=== PATIENT | female | born 1990 | race Two or more races ===

== ENCOUNTER 2024-02-04 20:30 | Emergency (ER) | payer MEDICAID, SELFPAY ==
[2024-02-04 20:34] VITALS: BMI 29.3
--- NOTE | 2024-02-04 20:46 | PC.NURSE ---
CALLED POISON CONTROL SPOKE TO PRATEEK AND RECOMMENDED TO GIVE SUPPORT CARE IF NEEDED EXAMPLE WILL BE BREATHING TREATMENT OR HUMIDIFIED AIR FOR COMFORT PT WILL BE FINE.
--- NOTE | 2024-02-04 21:27 | PC.NURSE ---
pt did not answer when name was called and was not found outside
--- NOTE | 2024-02-04 22:34 | PC.NURSE ---
Patient called in main ED lobby and outside, no answer.
--- NOTE | 2024-02-04 22:56 | PC.NURSE ---
No answer in main ED lobby.
== END 2024-02-04 22:56 | disposition left against medical advice (07) ==
LOC: SERX 22:58
PROVIDERS: Emergency Provider Emergency Medicine
DX: Z53.21 Procedure and treatment not carried out due to patient leaving prior to being seen by health care provider (principal)

== ENCOUNTER 2024-09-15 12:24 | Emergency (ER) | payer MEDICAID, SELFPAY ==
[2024-09-15 12:26] VITALS: BMI 29.0
[2024-09-15 13:16] VITALS: BP 142/93; PULSE 90; RESP 18; TEMP 36.7; O2SAT 100
--- NOTE | 2024-09-15 13:18 | EDNOTE_ITS ---
ED Wound/Laceration-RME/HPI General Chief Complaint: Wound/Laceration Stated Complaint: LAC TO TOP OF HEAD; HIT HAD ON METAL CABINET Time Seen by Provider: 09/15/24 13:26 Arrival date/time: 09/15/24 12:24 This is a 34-year-old female that comes in with complaints of laceration to the top of her head. No loss of consciousness. Patient was by a trailer and lifted her head up and hit herself on a bar. Patient has an approximately 2 cm laceration to the top of her head. No loss of consciousness. Related Data Previous Rx's ?Medication ?Instructions ?Recorded ibuprofen 600 mg tablet 600 mg PO Q8H PRN pain #30 t abs 06/30/21 ibuprofen 800 mg tablet 800 mg PO Q6H PRN pain #20 t abs 09/15/24 Allergies Allergy/AdvReac Type Severity Reaction Status Date / Time shrimp Allergy Severe Anaphylaxis Verified 09/15/24 12:28 Course Orders Category Date Time Status Acetaminophen Tab [Tylenol ES Tab] Med 09/15/24 15:54 Discontinued 1,000 mg PO X1 ONE Ibuprofen Tab [Motrin Tab] Med 09/15/24 15:54 Discontinued 800 mg PO X1 ONE TET,DIP/PERT AC (Adult)-Tdap [Boostrix Adult (Tdap) Med 09/15/24 16:11 Once Vacc] 0.5 ml IMI .ONCE ONE Vital Signs Vital signs: Vital Signs Temperature 98.1 F 09/15/24 13:16 Pulse Rate 90 09/15/24 13:16 Respiratory Rate 18 09/15/24 13:16 Blood Pressure 142/93 H 09/15/24 13:16 Pulse Oximetry (%) 100 09/15/24 13:16 Oxygen Delivery Method Room Air 09/15/24 13:16 Wound / Laceration MDM Narrative MDM Narrative:: 2 malik placed patient tolerated well. Patient told to have malik removed in 7 days. Medications / Prescriptions Medication administrations:: Medication Administration History Discontinued Medications Acetaminophen (Acetaminophen 500 Mg Tablet) 1,000 mg PO X1 ONE Stop: 09/15/24 15:55 Last Admin: 09/15/24 16:01 Dose: 1,000 mg Documented By: ROSARIO Ibuprofen (Ibuprofen Tab 400 Mg Tablet) 800 mg PO X1 ONE Stop: 09/15/24 15:55 Last Admin: 09/15/24 16:01 Dose: 800 mg Documented By: ROSARIO Discharge Plan Plan Patient Disposition: HOME (Self Care) Patient condition on transfer: Stable Prescriptions/Referrals Prescriptions/Med Rec: New ibuprofen 800 mg tablet 800 mg PO Q6H PRN (Reason: pain) Qty: 20 0RF No Action ibuprofen 600 mg tablet 600 mg PO Q8H PRN (Reason: pain) Qty: 30 0RF Referrals: Marquis Burnette MD [Primary Care Provider] - In 1 week Problem List Clinical Impression: Laceration Patient/Caregiver Discharge Instructions Discharge Activity: activity as tolerated Education Materials: ED Laceration Scalp Sutures or ... Additional Instructions: May have malik removed in 7 days. Come back to the emergency room if symptoms change or worsen. Print Language: Syriac Stand Alone Forms: Megha Award Info., Patient Portal Info Letter PA/CASEWORK SUPERVISOR Supervising Physician PA/CASEWORK SUPERVISOR Supervising Physician: sal
[2024-09-15] MEDS: IBUPROFEN TAB 400 MG TABLET 800 MG PO (16:01)
[2024-09-15] MEDS: ACETAMINOPHEN 500 MG TABLET 1000 MG PO (16:01)
[2024-09-15] MEDS: DIPHTH,PERTUSS(ACELL),TET VAC 0.5 ML SYR- ADULT IMi (16:15)
== END 2024-09-15 16:19 | disposition home or self-care (01) ==
PROVIDERS: Emergency Provider Emergency Medicine; PCP Family Medicine
DX: S01.91XA Laceration without foreign body of unspecified part of head, initial encounter (principal); Z23 Encounter for immunization; W22.8XXA Striking against or struck by other objects, initial encounter
CPT/HCPCS: 12001; 90471; 90715; 99283; A9270

== ENCOUNTER 2024-09-18 21:25 | Emergency (ER) | payer MEDICAID, SELFPAY ==
[2024-09-18 21:25] VITALS: BMI 29.3
[2024-09-18 21:36] VITALS: BP 139/92; PULSE 83; RESP 18; TEMP 36.8; O2SAT 99
--- NOTE | 2024-09-18 21:37 | EDNOTE_ITS ---
ED Abdominal Pain RME/HPI General Chief Complaint: Abdominal Pain Stated complaint: RIGHT LOWER ABDOMINAL PAIN Time seen by provider: 09/18/24 21:36 Arrival date/time: 09/18/24 21:25 RME / HPI RME / HPI narrative: This section includes all my notes and documentations, including HPI, PE, and ED course. Ben Fierro MD HPI: 34yo female with a history of DM, asthma presents to the ED for complaints of right flank pain radiating into RLQ for several days. She reports associated dysuria. She denies any fever, chills, N/V or any other associated symptoms. No other complaints reported. ROS: All negative except as documented in HPI. Physical Exam: General: Alert and oriented. In obvious pain. Eyes: Conjunctivae and lids clear. ENT: No nasal congestion. Neck: Supple. Heart: RRR. Lungs: No respiratory distress. Good air movement. No rhonchi, wheezing, rales. Abdomen: Soft with equivocal RLQ tenderness. Normal bowel sounds. No distension. No rebound or guarding. Back: Right CVA tenderness. Skin: Warm and dry. Neuro: Alert and oriented X 3. I reviewed all diagnostic test results. My review of the abdominal CT is pyelonephritis. Blood tests unremarkable. UA showed positive leukocyte Estrace, 8 RBC, 589 WBC, and bacteria. At this point, diagnoses include kidney infection. Treatment here included NS, Rocephin, Toradol, Morphine, and Zofran. Significant improvement noted. Recommend outpatient treatment. Based on my best medical judgment, made decision no further evaluation or treatment indicated at this time. Patient understands and agrees to the discharge instructions customized and printed, see below. Discharge instructions from Dr. Fierro: 1. After evaluation, you have right kidney infection. 2. Take cefdinir to kill the germs causing the infection. Increase oral fluid to flush it out. Maintain clear urine. If dark or yellow, increase oral fluid. 3. Zofran for nausea/vomiting. Tylenol with codeine for severe pain. 4. See a private doctor on 09/23/2024 for recheck. Ask to review all test results and official radiology reports, to make sure you receive all necessary follow-ups and monitoring. Ask to check the final urine culture results from today to make sure cefdinir doesn't need to be changed due to resistance. 5. Seek immediate medical care with worsening, fever, or with any concerns. Instrucciones de scooter del Dr. Fierro: 1. Despu?s de la evaluaci?n, presenta infecci?n en el ri??n derecho. 2. [place] cefdinir para eliminar los g?rmenes que causan la infecci?n. Aumente la cantidad de l?quidos orales para eliminarlos. Mantenga la orina ally. Si es oscura o amarilla, aumente la cantidad de l?quidos orales. 3. Zofran para n?useas y v?mitos. Tylenol con code?na para dolor intenso. 4. Consulte con un m?dico particular el 23/09/2024 para fanny nueva revisi?n. Solicite la revisi?n de todos los resultados de las pruebas y los informes radiol?gicos oficiales para asegurarse de recibir todos los controles y monitoreos necesarios. Solicite la revisi?n de los resultados finales del urocultivo de hoy para asegurarse de que no sea necesario cambiar la dosis de cefdinir debido a la resistencia. 5. Busque atenci?n m?dica inmediata si presenta empeoramiento, fiebre o cualquier inquietud. Ben Fierro MD Related Data Previous Rx's ?Medication ?Instructions ?Recorded ibuprofen 600 mg tablet 600 mg PO Q8H PRN pain #30 t abs 06/30/21 ibuprofen 800 mg tablet 800 mg PO Q6H PRN pain #20 t abs 09/15/24 acetaminophen 300 mg-codeine 30 mg 2 tab PO Q8H PRN pa in #20 tabs 09/19/24 tablet cefdinir 300 mg capsule 300 mg PO BID #14 caps 09/19 ondansetron 4 mg disintegrating 4 mg PO TID PRN nausea and 09/19/24 tablet vomiting 30 days #10 tabs Allergies Allergy/AdvReac Type Severity Reaction Status Date / Time shrimp Allergy Severe Anaphylaxis Verified 09/15/24 12:28 Review of Systems Review of Systems Systems Reviewed: All systems reviewed, normal except as documented Past Medical History Past Medical History NEUROLOGIC: Negative Neurological Disorders or Seizures CARDIAC: Negative Cardiac Disorders or Congestive Heart Failure RESPIRATORY: Positive Asthma; Negative Chronic Obstructive Pulmonary Disease (COPD) GASTROINTESTINAL: Negative Gastrointestinal Disorders or Hepatitis GENITOURINARY: Negative Genitourinary Disorders or Renal Disease REPRODUCTIVE: Negative Pelvic Inflammatory Disease MUSCULOSKELETAL: Negative Musculoskeletal Disorders ENDOCRINE: Positive Endocrine Disorders and Diabetes Mellitus Type 2; Negative Diabetes Mellitus Type 1 HEMATOLOGIC: Negative Blood Disorders OTHER HISTORY: Positive Hospitalization (Previous ); Negative Autoimmune Disease, Down Syndrome, Developmental Delay, Shingles, Falls, Blood Transfusions, Blood Transfusion Reaction, Anesthesia Reactions, Organ Transplant, Chemotherapy, Radiation Therapy, Hyperbaric Therapy, MRSA, VRSA, Vancomycin-Resistant Enterococci, Human Immunodeficiency Virus (HIV), Chicken Pox, Measles, Mumps, Rubella ([place] Measles), Pertussis, Clostridium Difficile or Cancer Family History FAMILY HISTORY: Negative Family Neurologic Problems, Family Psychiatric Problems, Family Respiratory Disorders, Family Cardiac Disorders, Family Gastrointestinal Problems, Family Cancer, Family Surgery or Family Anesthesia Reaction Surgical History SURGICAL: Negative Cardiac Surgery, Endocrine Surgery, Ear Surgery, Eye Surgery, Nose Surgery, Oral Surgery, Abdominal Surgery, Nephrectomy, Transurethral Resection, Joint Replacement, Neurologic Surgery, Brain Shunt, Mastectomy, Lumpectomy, Hysterectomy, Tubal Ligation, Section, Vasectomy or Organ Transplant Social History SMOKING STATUS: Never smoker SECOND HAND EXPOSURE: No SUBSTANCE USE: does not use ED Exam Narrative Physical exam: As noted in HPI. Course Quality Measures none Orders Category Date Time Status Saline [Insert IV] NOW Care 09/18/24 21:37 Completed Straight [In and Out Catheter] X1 Care 09/18/24 21:[address] abdomen pelvis wo con Stat Exams 09/18/24 21:38 Taken CBC Auto Diff Post-Transfusion Stat Lab 09/18/24 22:03 Completed CMP [Comprehensive Metabolic Panel] Stat Lab 09/18/24 22:03 Completed HCG Qualitative,Urine Stat Lab 09/18/24 23:11 Completed HCG,Qualitative Serum Stat Lab 09/18/24 22:03 Completed Magnesium Stat Lab 09/18/24 22:03 Completed UA, C/S IF [Urinalysis, C/S if Indicated] Stat Lab 09/18/24 23:11 Completed Urine Culture Stat Lab 09/18/24 23:11 Received Ketorolac Inj [Toradol Inj] Med 09/18/24 21:37 Discontinued 30 mg IVP X1 ONE Morphine Inj Med 09/18/24 21:37 Discontinued 4 mg IVP X1 ONE Ondansetron Inj [Zofran Inj] Med 09/18/24 21:37 Discontinued 4 mg IV X1 ONE Sodium Chloride 0.9% 1000 ml [Ns] 1,000 ml Med 09/18/24 21:37 Discontinued IV 999 mls/hr cefTRIAXone [Rocephin] 1,000 mg Med 09/19/24 00:43 Discontinued SODIUM CHLORIDE 0.9% ([place]) [Ns 0.9% (P)] 50 ml IV X1 Vital Signs Vital signs: Vital Signs Temperature 98.3 F 09/18/24 21:36 Pulse Rate 83 09/18/24 21:36 Respiratory Rate 18 09/18/24 21:36 Blood Pressure 139/92 H 09/18/24 21:36 Pulse Oximetry (%) 99 09/18/24 21:36 Oxygen Delivery Method Room Air 09/18/24 21:36 Abdominal Pain MDM MDM Narrative MDM Narrative:: Scribe Attestation: 09/18/24 - Rita Monk am scribing for and in the presence of Dr. Fierro. Patient data External records reviewed:: [facility] previous records (Per chart review, patient was seen here on 01/25/21 for abdominal pain.) Clinical information provided by:: patient Social determinants that could affect healthcare access:: none Patient has the following chronic illnesses:: DM, asthma How is presenting disease/condition affected by chronic disease/condition?: uneffected by Evaluation data The following diagnostics were reviewed and interpreted by me:: lab results and radiology exam(s) Lab and/or radiology exams considered but not ordered:: none Interpretation Summary: Kidney infection Medications / Prescriptions Medications or Prescriptions considered but not ordered:: none Medication administrations:: Medication Administration History Discontinued Medications Sodium Chloride (Ns) 1,000 mls @ 999 mls/hr IV .Q1H1M ONE Stop: 09/18/24 22:37 Last Infusion: 09/18/24 23:30 Dose: Infused Documented By: Admin: 09/18/24 22:07 Dose: 999 mls/hr Documented By: OLGA Ceftriaxone Sodium 1,000 mg/ (Sodium Chloride) 50 mls @ 100 mls/hr IV X1 ONE Stop: 09/19/24 01:12 Last Infusion: 09/19/24 02:28 Dose: Infused Documented By: Admin: 09/19/24 01:02 Dose: 100 mls/hr Documented By: SF Ketorolac Tromethamine (Ketorolac Inj 30 Mg/Ml Vial) 30 mg IVP X1 ONE Stop: 09/18/24 21:38 Last Admin: 09/18/24 22:05 Dose: 30 mg Documented By: SF Morphine Sulfate (Morphine Sulf Inj 10 Mg/Ml Vial) 4 mg IVP X1 ONE Stop: 09/18/24 21:38 Last Admin: 09/18/24 22:06 Dose: 4 mg Documented By: SF Ondansetron HCl (Ondansetron Inj 2 Mg/Ml Inj 2 Ml) 4 mg IV X1 ONE; Protocol Stop: 09/18/24 21:38 Last Admin: 09/18/24 22:05 Dose: 4 mg Documented By: OLGA NS, Rocephin, Toradol, Morphine, Zofran Consultations Consultation(s) initiated? (list below): No Diagnosis Differential diagnosis abdominal pain: acute appendicitis, calculus of kidney, constipation, diverticulitis, endometriosis, gastroenteritis, pancreatitis, small bowel obstruction and other (UTI, pyelonephritis, musculoskeletal pain) Most likely diagnosis given after review of the tests above:: Kidney infection Admission Indicated Admission indicated?: not indicated Explain why admission is indicated or not indicated:: With significant improvement, there was no indication for admission. Admission Request Was there a request for admission?: No Disposition Plan Disposition Plan: Discharge Discharge Attestation Discharge Attestation: The patient and all family members were given an opportunity to ask questions and understood the discharge instructions. Discharge instructions specifically effects, indications for sooner follow up or return to the emergency department, and the expected course of current diagnosis. Patient condition: Stable Discharge Plan Plan Patient Disposition: HOME (Self Care) Prescriptions/Referrals Prescriptions/Med Rec: New acetaminophen-codeine 300-30 mg tablet 2 tab PO Q8H MDD 6 PRN (Reason: pain) Qty: 20 0RF ondansetron 4 mg tablet,disintegrating 4 mg PO TID PRN (Reason: nausea and vomiting) 30 Days Qty: 10 0RF cefdinir 300 mg capsule 300 mg PO BID Qty: 14 0RF No Action ibuprofen 600 mg tablet 600 mg PO Q8H PRN (Reason: pain) Qty: 30 0RF ibuprofen 800 mg tablet 800 mg PO Q6H PRN (Reason: pain) Qty: 20 0RF Referrals: No Primary/Family,Physician [Primary Care Provider] - In 1 week Problem List Clinical Impression: Kidney infection Patient/Caregiver Discharge Instructions Discharge Activity: activity as tolerated Education Materials: ED Pyelonephritis, Female (Adult) Additional Instructions: Discharge instructions from Dr. Fierro: 1. After evaluation, you have right kidney infection. 2. Take cefdinir to kill the germs causing the infection.? Increase oral fluid to flush it out.? Maintain clear urine.? If dark or yellow, increase oral fluid. 3. Zofran for nausea/vomiting.? Tylenol with codeine for severe pain. 4. See a private doctor on 09/23/2024 for recheck.? Ask to review all test results and official radiology reports, to make sure you receive all necessary follow-ups and monitoring. Ask to check the final urine culture results from today to make sure cefdinir doesn't need to be changed due to resistance. 5. Seek immediate medical care with worsening, fever, or with any concerns. Instrucciones de scooter del Dr. Fierro: 1. Despu?s de la evaluaci?n, presenta infecci?n en el ri??n derecho. 2. [place] cefdinir para eliminar los g?rmenes que causan la infecci?n. Aumente la cantidad de l?quidos orales para eliminarlos. Mantenga la orina ally. Si es oscura o amarilla, aumente la cantidad de l?quidos orales. 3. Zofran para n?useas y v?mitos. Tylenol con code?na para dolor intenso. 4. Consulte con un m?dico particular el 23/09/2024 para fanny nueva revisi?n. Solicite la revisi?n de todos los resultados de las pruebas y los informes radiol?gicos oficiales para asegurarse de recibir todos los controles y monitoreos necesarios. Solicite la revisi?n de los resultados finales del urocultivo de hoy para asegurarse de que no sea necesario cambiar la dosis de cefdinir debido a la resistencia. 5. Busque atenci?n m?dica inmediata si presenta empeoramiento, fiebre o cualquier inquietud. Print Language: Welsh Stand Alone Forms: Mgeha Award Info., Patient Portal Info Letter
--- NOTE | 2024-09-18 21:38 | XR_ITS ---
Examination: CT abdomen and pelvis without contrast. Coronal 3-D reconstructions. Sagittal 2-D reconstructions. Date and time of exam:September 19, 2024 0024 hrs. Indications: Right lower abdominal pain flank pain today CTDI: vol (mGy): 9.56 DLP: (mGycm): 531 Technique: Axial images of the abdomen have been obtained, 3 mm slice thickness Intravenous contrast material has not been administered. Low dose protocols were performed. One or more of the following dose reduction techniques were used; automated exposure control, adjustment of the mA and/or KV according to patient size, use of iterative reconstruction technique. Findings: No focal liver or splenic lesion No gallstones No pancreatic or adrenal mass Minimal right hydronephrosis and minimal wall thickening right ureter No ureteral calculi Normal appendix No bowel obstruction Urinary bladder intact Right pelvic phlebolith Impression: Minimal right hydronephrosis, differential would include right urinary tract infection
[2024-09-18] MEDS: KETOROLAC INJ 30 MG/ML VIAL IVP (22:05)
[2024-09-18] MEDS: ONDANSETRON INJ 2 MG/ML INJ 2 ML 4 MG IV (22:05)
[2024-09-18] MEDS: MORPHINE SULF INJ 10 MG/ML VIAL 4 MG IVP (22:06)
[2024-09-18] MEDS: SODIUM CHLORIDE 0.9% 1000 ML 1,000 ML 999 ML IV (22:07)
[2024-09-18 22:16] LABS: Basophils % (Auto) 0 % (0-2.5); Eosinophils # (Auto) 0.7 Thou/mm3 (0.0-0.5); Eosinophils % (Auto) 8 % (0-10); Hematocrit 31.8 % (36.0-46.0); Hemoglobin 10.1 g/dL (12.0-16.0); Immature Granulocytes % (Auto) 0 % (0-0); Immature Granulocytes Auto 0.03 Thou/mm3 (0.00-0.00); Lymphocytes # (Auto) 1.7 Thou/mm3 (1.0-4.8); Lymphocytes % (Auto) 19 % (10-50); Mean Corpuscular HGB Conc 31.8 g/dl (31.0-37.0); Mean Corpuscular Hemoglobin 25.1 pg (25.0-35.0); Mean Corpuscular Volume 79 fL (80-100); Monocytes # (Auto) 0.9 Thou/mm3 (0.0-0.8); Monocytes % (Auto) 10 % (0-12); Neutrophils # (Auto) 5.7 Thou/mm3 (1.8-7.7); Neutrophils % (Auto) 63 % (37-80); Nucleated Red Blood Cell % 0 /100 WBC (0); Platelet Count 223 Thou/mm3 (140-440); RDW Standard Deviation 39.7 fL (36.4-46.3); Red Blood Count 4.02 Miln/mm3 (4.00-5.20)
[2024-09-18 22:31] LABS: Anion Gap 8 (7-16); BUN/Creatinine Ratio 13 Ratio (12-20); Blood Urea Nitrogen 9 mg/dL (9-23); Carbon Dioxide 26.6 mMol/L (20.0-31.0); Chloride 104 mMol/L (98-107); Creatinine (Component) 0.7 mg/dL (0.6-1.3); Estimated Creatinine Clearance 121.5 mL/min (>60); Glucose 144 mg/dL (74-106); Potassium 4.1 mMol/L (3.4-5.1); Sodium 139 mMol/L (136-145); eGFR > 60 See Note
[2024-09-18 22:32] LABS: Alanine Aminotransferase 32 U/L (10-49); Albumin, Serum 4.3 gm/dL (3.5-5.0); Albumin/Globulin Ratio 1.5 (1.2-2.2); Alkaline Phosphatase 73 U/L (46-116); Aspartate Amino Transferase 25 U/L (0-34); Bilirubin,Total 0.3 mg/dL (0.3-1.2); Calcium 9.2 mg/dL (8.3-10.6); Calcium (Corrected) 9.2 mg/dL (8.5-10.1); Globulin 2.8 gm/dL (2.3-3.5); Magnesium 1.8 mg/dL (1.6-2.6); Osmolality,Calculated 279 (275-295); Total Protein 7.1 gm/dL (5.7-8.2)
[2024-09-18 23:19] LABS: Collection Type, Urine Clean Catch; Squamous Epithelial Cell,Urine 0 /hpf (0-5)
[2024-09-18 23:29] LABS: HCG,Qualitative Serum Negative
[2024-09-19 00:15] LABS: HCG Qualitative,Urine Negative
[2024-09-19 00:33] LABS: Bacteria,Urine Rare; Bilirubin,Urine Negative (Negative); Blood,Urine 2+ (Negative); Clarity,Urine Turbid (Clear/Hazy); Color,Urine Lt-Yellow (Lt Yel-Yel); Culture Indicated,Urine Yes; Glucose, Urine Negative (Negative); Ketones,Urine Negative (Negative); Leukocyte Esterase,Urine Positive (Negative); Nitrite,Urine Negative (Negative); PH,Urine 7.5 (5.0-7.0); Protein,Urine Trace (Neg - Trace); RBC,Urine 8 /hpf (0-3); Specific Gravity,Urine 1.006 (1.001-1.035); Urobilinogen,Urine Negative mg/dL (0.0-1.0); WBC,Urine 589 /hpf (0-5)
[2024-09-19] MEDS: cefTRIAXone 1,000 MG in SODIUM CHLORIDE 0.9% (Popper) 50 ML 100 MG IV (01:02)
--- NOTE | 2024-09-19 01:50 | PRELIM_ITS ---
CT scan of the abdomen and pelvis without intravenous contrast (axial sections with sagittal and coronal reformats). September 19, 2024 at 0024 hours Clinical History: Right flank pain. Comparison: No prior study is available for comparison. Findings: The lung bases are clear. The liver, gallbladder, pancreas, spleen and adrenals are unremarkable on this noncontrast study. Mild right hydroureteronephrosis with transition point in the pelvis. No kidney or ureteral stones. Mild thickening of the right ureteral wall. Right pelvic calcification measuring 0.2 cm, probably phlebolith. Prominent right adnexa. No evidence of bowel obstruction. The appendix is within normal limits. There is no mesenteric or retroperitoneal adenopathy. The urinary bladder is unremarkable. There is no free fluid or free air. The osseous structures are unremarkable. Impression: 1. Mild right hydroureteronephrosis, consider transitional cell carcinoma, ureteritis, and recently passed right ureteral stone in the differential diagnosis. 2. Prominent right adnexa, correlation with pelvic ultrasound is recommended. 3. Right pelvic calcification measuring 0.2 cm, probably phlebolith. Consider correlation with delayed postcontrast imaging to exclude distal right ureteral stone. Report Electronically Signed By: Clement Rodriguez 09/19/2024 1:49:44 AM [EST]
[2024-09-19 02:29] VITALS: BP 117/79; PULSE 70; RESP 18; TEMP 36.7; O2SAT 100
== END 2024-09-19 02:30 | disposition home or self-care (01) ==
PROVIDERS: Emergency Provider Emergency Medicine
DX: N15.9 Renal tubulo-interstitial disease, unspecified (principal); E11.9 Type 2 diabetes mellitus without complications; J45.909 Unspecified asthma, uncomplicated
CPT/HCPCS: 36415; 74176; 80053; 81001; 81025; 83735; 84703; 85025; 87077; 87086; 87186; 96361; 96365; 96375; 99284; J0696; J1885; J2270; J2405; J7030; J7050

== ENCOUNTER 2024-09-23 16:09 | Emergency (ER) | payer MEDICAID, SELFPAY ==
[2024-09-23 17:14] VITALS: BP 127/80; PULSE 84; RESP 18; TEMP 37; O2SAT 98
--- NOTE | 2024-09-23 18:43 | PD.EDRME ---
Rapid Medical Screening Exam RME Arrival date/time: 09/23/24 16:09 Chief Complaint: General Adult/Misc Complain Time Seen by Provider: 09/23/24 17:21 Vital signs: Vital Signs Temperature 98.6 F 09/23/24 17:14 Pulse Rate 84 09/23/24 17:14 Respiratory Rate 18 09/23/24 17:14 Blood Pressure 127/80 09/23/24 17:14 Pulse Oximetry (%) 98 09/23/24 17:14 Oxygen Delivery Method Room Air 09/23/24 17:14 Vital signs reviewed by provider: Yes RME Narrative: 34-year-old female presents to the ED for staple removal x 2 from her scalp. They replaced 1 week ago. She has had no complaints since they were placed.
--- NOTE | 2024-12-04 12:07 | PD.EDADULT ---
ED General RME/HPI General Chief complaint: General Adult/Misc Complain Stated complaint: RETURNED FOR STAPLE REMOVAL IN HER HEAD Time Seen by Provider: 09/23/24 17:21 Arrival date/time: 09/23/24 16:09 RME / HPI RME / HPI narrative: 34-year-old female presents to the ED for staple removal x 2 from her scalp. They replaced 1 week ago. She has had no complaints since they were placed. Related Data Previous Rx's ?Medication ?Instructions ?Recorded ibuprofen 600 mg tablet 600 mg PO Q8H PRN pain #30 tabs 06/30/21 ibuprofen 800 mg tablet 800 mg PO Q6H PRN pain #20 tabs 09/15/24 acetaminophen 300 mg-codeine 30 mg 2 tab PO Q8H PRN pain #20 tabs 09/19/24 tablet cefdinir 300 mg capsule 300 mg PO BID #14 caps 09/19/24 Allergies Allergy/AdvReac Type Severity Reaction Status Date / Time shrimp Allergy Severe Anaphylaxis Verified 09/23/24 16:12 Review of Systems Review of Systems Systems Reviewed: All systems reviewed, normal except as documented Past Medical History Past Medical History NEUROLOGIC: Negative Neurological Disorders or Seizures CARDIAC: Negative Cardiac Disorders or Congestive Heart Failure RESPIRATORY: Positive Asthma; Negative Chronic Obstructive Pulmonary Disease (COPD) GASTROINTESTINAL: Negative Gastrointestinal Disorders or Hepatitis GENITOURINARY: Negative Genitourinary Disorders or Renal Disease REPRODUCTIVE: Negative Pelvic Inflammatory Disease MUSCULOSKELETAL: Negative Musculoskeletal Disorders ENDOCRINE: Positive Endocrine Disorders and Diabetes Mellitus Type 2; Negative Diabetes Mellitus Type 1 HEMATOLOGIC: Negative Blood Disorders OTHER HISTORY: Positive Hospitalization (Previous ); Negative Autoimmune Disease, Down Syndrome, Developmental Delay, Shingles, Falls, Blood Transfusions, Blood Transfusion Reaction, Anesthesia Reactions, Organ Transplant, Chemotherapy, Radiation Therapy, Hyperbaric Therapy, MRSA, VRSA, Vancomycin-Resistant Enterococci, Human Immunodeficiency Virus (HIV), Chicken Pox, Measles, Mumps, Rubella (Maori Measles), Pertussis, Clostridium Difficile or Cancer Family History FAMILY HISTORY: Negative Family Neurologic Problems, Family Psychiatric Problems, Family Respiratory Disorders, Family Cardiac Disorders, Family Gastrointestinal Problems, Family Cancer, Family Surgery or Family Anesthesia Reaction Surgical History SURGICAL: Negative Cardiac Surgery, Endocrine Surgery, Ear Surgery, Eye Surgery, Nose Surgery, Oral Surgery, Abdominal Surgery, Nephrectomy, Transurethral Resection, Joint Replacement, Neurologic Surgery, Brain Shunt, Mastectomy, Lumpectomy, Hysterectomy, Tubal Ligation, Section, Vasectomy or Organ Transplant Social History SMOKING STATUS: Never smoker SECOND HAND EXPOSURE: No SUBSTANCE USE: does not use ED Exam Narrative Physical exam: Alert and oriented 34-year-old female, no acute distress. Patient is afebrile and nontoxic-appearing. Vital signs are stable. Cardiopulmonary exam is normal. Healed laceration noted to the top of her head with 2 malik present. No signs or symptoms of infection. Course Course Course Narrative: Malik x 2 removed without complication. Quality Measures none Vital Signs Vital signs: Vital Signs Temperature 98.6 F 09/23/24 17:14 Pulse Rate 84 09/23/24 17:14 Respiratory Rate 18 09/23/24 17:14 Blood Pressure 127/80 09/23/24 17:14 Pulse Oximetry (%) 98 09/23/24 17:14 Oxygen Delivery Method Room Air 09/23/24 17:14 Discharge Plan Plan Patient Disposition: HOME (Self Care) Discharge Disposition comment: Stable and improved Prescriptions/Referrals Prescriptions/Med Rec: No Action ibuprofen 600 mg tablet 600 mg PO Q8H PRN (Reason: pain) Qty: 30 0RF ibuprofen 800 mg tablet 800 mg PO Q6H PRN (Reason: pain) Qty: 20 0RF acetaminophen-codeine 300-30 mg tablet 2 tab PO Q8H MDD 6 PRN (Reason: pain) Qty: 20 0RF cefdinir 300 mg capsule 300 mg PO BID Qty: 14 0RF Referrals: No Primary/Family,Physician [Primary Care Provider] - In 1 week Problem List Clinical Impression: Encounter for staple removal Patient/Caregiver Discharge Instructions Education Materials: ED Stitches/Staple Removal No ... Additional Instructions: Follow-up with your primary care physician in 24 to 48 hours. Return to the ED for any new or worsening symptoms. Print Language: Occitan Stand Alone Forms: Megha Award Info., Patient Portal Info Letter PA/INNER [employer]BE INSERTER Supervising Physician PA/ADAM Supervising Physician: Dr. Cardona [facility] Narrative [facility] hospital course: 34-year-old female presents to the ED requesting removal of several malik to the top of her head that were placed 1 week ago. Exam reveals a well-healed laceration noted to the top of her head with 2 malik present. No signs or symptoms of infection present. Malik were removed without complication. Patient tolerated procedure well. Patient was discharged home in stable and improved condition. Clinical Information Provided by patient Medical Records Reviewed [facility] Malik placed 1 week ago. Meds/Rx Considered, not Ordered None Labs/Rad/Tests considered, not Ordered None Chronic Illness/Social Conditions which may negatively complicate care or outcome(s)-explain: None or not applicable EKG EKG not done Lab Interpretation Labs: none Imaging Imaging interpretation: none Medication Administration(s) none Diagnosis Differential diagnosis: Staple removal, wound infection Differential dx and/or dx ruled out: Wound infection Most likely dx, and/or detailed dx discussion: Scalp staple removal without complication Dispositon Disposition: Discharge Home Disposition comments: Stable and improved
== END 2024-09-23 19:12 | disposition home or self-care (01) ==
PROVIDERS: Emergency Provider Family Medicine
DX: S01.01XD Laceration without foreign body of scalp, subsequent encounter (principal); X58.XXXD Exposure to other specified factors, subsequent encounter
CPT/HCPCS: 99282

== ENCOUNTER → 2024-10-30 | Outpatient (CLI) | payer MEDICAID, SELFPAY ==
--- NOTE | 2024-10-30 15:43 | XR_ITS ---
Examination: PA lateral chest 2 views TECHNIQUE: Upright PA and lateral chest 2 views Date and time: October 30, 2024, 1630 hours Comparison March 25, 2017 INDICATIONS: TB exposure May 2024 FINDINGS: Normal heart size. Lungs are clear. Osseous structures are intact. IMPRESSION: No active disease. No radiographic findings of tuberculosis
== END | disposition home or self-care (01) ==
DX: Z20.1 Contact with and (suspected) exposure to tuberculosis (principal)
CPT/HCPCS: 71046

== ENCOUNTER 2025-02-08 20:33 | Emergency (ER) | payer MEDICAID, SELFPAY ==
[2025-02-08 20:35] VITALS: BMI 31.4
[2025-02-08 21:28] VITALS: BP 123/78; PULSE 81; RESP 18; TEMP 37.1; O2SAT 98
--- NOTE | 2025-02-08 21:34 | XR_ITS ---
Examination: Complete OB ultrasound, less than 14 weeks, transabdominal Date and time of exam: February 08, 2025, 10 0 5:00 PM Indications: Vaginal bleeding today Technique: Obstetrical ultrasound images less than 14 weeks performed via transabdominal imaging Findings: A normal shaped single intrauterine gestation is present in the uterus. CRL 0.6 cm corresponds to 6 weeks 3 days gestational age. Cardiac motion 133 BPM Ultrasonographic survey of visible and placental structures unremarkable. Amniotic fluid volume appears appropriate for this estimated gestational age. Right ovary 3.1 cm arterial flow. Left ovary 3.6 cm arterial flow Impression: Viable intrauterine gestation 6 weeks 3 days.
[2025-02-08 22:07] LABS: Basophils # (Auto) 0.0 Thou/mm3 (0.0-0.2); Basophils % (Auto) 0 % (0-2.5); Eosinophils # (Auto) 0.5 Thou/mm3 (0.0-0.5); Eosinophils % (Auto) 6 % (0-10); Hematocrit 36.1 % (36.0-46.0); Hemoglobin 12.3 g/dL (12.0-16.0); Immature Granulocytes Auto 0.04 Thou/mm3 (0.00-0.00); Lymphocytes # (Auto) 2.2 Thou/mm3 (1.0-4.8); Lymphocytes % (Auto) 24 % (10-50); Mean Corpuscular HGB Conc 34.1 g/dl (31.0-37.0); Mean Corpuscular Hemoglobin 28.5 pg (25.0-35.0); Mean Corpuscular Volume 84 fL (80-100); Monocytes # (Auto) 0.9 Thou/mm3 (0.0-0.8); Monocytes % (Auto) 10 % (0-12); Neutrophils # (Auto) 5.4 Thou/mm3 (1.8-7.7); Neutrophils % (Auto) 60 % (37-80); Nucleated Red Blood Cell # 0.00 Thou/mm3 (0.00-0.00); Nucleated Red Blood Cell % 0 /100 WBC (0); Platelet Count 243 Thou/mm3 (140-440); RDW Standard Deviation 38.6 fL (36.4-46.3); Red Blood Count 4.32 Miln/mm3 (4.00-5.20); White Blood Count 9.1 Thou/mm3 (3.6-11.0)
[2025-02-08 22:13] LABS: Bilirubin,Urine Negative (Negative); Blood,Urine Negative (Negative); Clarity,Urine Clear (Clear/Hazy); Collection Type, Urine Voided; Color,Urine Colorless (Lt Yel-Yel); Glucose, Urine Negative (Negative); Ketones,Urine Negative (Negative); Leukocyte Esterase,Urine Negative (Negative); Nitrite,Urine Negative (Negative); PH,Urine 6.5 (5.0-7.0); Protein,Urine Negative (Neg - Trace); RBC,Urine < 1 /hpf (0-3); Specific Gravity,Urine 1.010 (1.001-1.035); Squamous Epithelial Cell,Urine 0 /hpf (0-5); Urobilinogen,Urine Negative mg/dL (0.0-1.0); WBC,Urine < 1 /hpf (0-5)
[2025-02-08 23:00] LABS: Alanine Aminotransferase 35 U/L (10-49); Albumin, Serum 4.5 gm/dL (3.5-5.0); Albumin/Globulin Ratio 1.8 (1.2-2.2); Alkaline Phosphatase 64 U/L (46-116); Anion Gap 10 (7-16); Aspartate Amino Transferase 18 U/L (0-34); BUN/Creatinine Ratio 9 Ratio (12-20); Beta HCG,Quantitative 51327 mIU/mL (<5.0); Bilirubin,Total 0.5 mg/dL (0.3-1.2); Blood Urea Nitrogen 8 mg/dL (9-23); Calcium 10.4 mg/dL (8.3-10.6); Calcium (Corrected) 10.4 mg/dL (8.5-10.1); Carbon Dioxide 27.9 mMol/L (20.0-31.0); Chloride 101 mMol/L (98-107); Creatinine (Component) 0.9 mg/dL (0.6-1.3); Estimated Creatinine Clearance 97.7 mL/min (>60); Globulin 2.5 gm/dL (2.3-3.5); Glucose 132 mg/dL (74-106); Osmolality,Calculated 277 (275-295); Potassium 4.0 mMol/L (3.4-5.1); Sodium 139 mMol/L (136-145); Total Protein 7.0 gm/dL (5.7-8.2); eGFR > 60 See Note
--- NOTE | 2025-02-08 23:33 | EDNOTE_ITS ---
ED OB Contraction Preg RMI/HPI General Chief complaint: Vaginal Bleeding Stated complaint: VAGINAL BLEEDING Time Seen by Provider: 02/08/25 20:43 Source: patient and family Arrival date/time: 02/08/25 20:33 This is a case of 34-year-old female with no medical history came in in the emergency room due to vaginal bleeding today with mild pelvic cramping patient is 6 weeks 5 para 4 LMP is unknown still need to see a OB waiting for the referral persistence of the symptoms thus patient decided to sought consult here in the emergency room Limitations: no limitations Related Data Previous Rx's ?Medication ?Instructions ?Recorded ibuprofen 600 mg tablet 600 mg PO Q8H PRN pain #30 t abs 06/30/21 ibuprofen 800 mg tablet 800 mg PO Q6H PRN pain #20 t abs 09/15/24 acetaminophen 300 mg-codeine 30 mg 2 tab PO Q8H PRN pa in #20 tabs 09/19/24 tablet cefdinir 300 mg capsule 300 mg PO BID #14 caps 09/19 Allergies Allergy/AdvReac Type Severity Reaction Status Date / Time shrimp Allergy Severe Anaphylaxis Verified 02/08/25 20:34 Review of Systems Review of Systems Systems Reviewed: All systems reviewed, normal except as documented Constitutional Constitutional: Reports system reviewed and no additional complaints, except as documented and Reports as per HPI Cardiovascular Cardiovascular: Reports system reviewed and no additional complaints, except as documented and Reports as per HPI Respiratory Respiratory: Reports system reviewed and no additional complaints, except as documented and Reports as per HPI Gastrointestinal Gastrointestinal: Reports system reviewed and no additional complaints, except as documented and Reports as per HPI Neurologic Neurologic: Reports system reviewed and no additional complaints, except as documented and Reports as per HPI Past Medical History Past Medical History NEUROLOGIC: Negative Neurological Disorders or Seizures CARDIAC: Negative Cardiac Disorders or Congestive Heart Failure RESPIRATORY: Positive Asthma; Negative Chronic Obstructive Pulmonary Disease (COPD) GASTROINTESTINAL: Negative Gastrointestinal Disorders or Hepatitis GENITOURINARY: Negative Genitourinary Disorders or Renal Disease REPRODUCTIVE: Negative Pelvic Inflammatory Disease MUSCULOSKELETAL: Negative Musculoskeletal Disorders ENDOCRINE: Positive Endocrine Disorders and Diabetes Mellitus Type 2; Negative Diabetes Mellitus Type 1 HEMATOLOGIC: Negative Blood Disorders OTHER HISTORY: Positive Hospitalization (Previous ); Negative Autoimmune Disease, Down Syndrome, Developmental Delay, Shingles, Falls, Blood Transfusions, Blood Transfusion Reaction, Anesthesia Reactions, Organ Transplant, Chemotherapy, Radiation Therapy, Hyperbaric Therapy, MRSA, VRSA, Vancomycin-Resistant Enterococci, Human Immunodeficiency Virus (HIV), Chicken Pox, Measles, Mumps, Rubella (Surinamese Measles), Pertussis, Clostridium Difficile or Cancer Family History FAMILY HISTORY: Negative Family Neurologic Problems, Family Psychiatric Problems, Family Respiratory Disorders, Family Cardiac Disorders, Family Gastrointestinal Problems, Family Cancer, Family Surgery or Family Anesthesia Reaction Surgical History SURGICAL: Negative Cardiac Surgery, Endocrine Surgery, Ear Surgery, Eye Surgery, Nose Surgery, Oral Surgery, Abdominal Surgery, Nephrectomy, Transurethral Resection, Joint Replacement, Neurologic Surgery, Brain Shunt, Mastectomy, Lumpectomy, Hysterectomy, Tubal Ligation, Section, Vasectomy or Organ Transplant Social History SMOKING STATUS: Never smoker SECOND HAND EXPOSURE: No SUBSTANCE USE: does not use ED Exam General Limitations: Present no limitations General appearance: Present alert, in no apparent distress and other (Patient is awake alert oriented not in distress nontoxic looking well-hydrated well- nourished) Head Head exam: Present atraumatic, normocephalic and normal inspection Eye Eye exam: Present normal appearance, PERRL and EOMI ENT ENT exam: Present normal exam, normal oropharynx and mucous membranes moist Neck Neck exam: Present normal inspection, full ROM and trachea midline; Absent tenderness, meningismus, lymphadenopathy or thyromegaly Chest Chest inspection: Present normal inspection and symmetric chest wall rise; Absent tenderness Respiratory Respiratory exam: Present normal lung sounds bilaterally; Absent respiratory di stress, wheezes, stridor, accessory muscle use or prolonged expiratory phase Cardiovascular Cardiovascular exam: Present regular rate, normal rhythm and normal heart sounds; Absent bradycardia, tachycardia, irregular rhythm, systolic murmur or diastolic murmur Abdominal Exam Abdominal exam: Present soft, normal bowel sounds and other (Gravid uterus); Absent distention, tenderness, guarding, rebound, rigidity, diminished bowel sounds, hyperactive bowel sounds or hypoactive bowel sounds Extremities Exam Extremities exam: Present normal inspection and full ROM Back Exam Back exam: Present normal inspection and full ROM Neurological Exam Neurological exam: Present alert, oriented X3, CN II-XII intact, normal gait and reflexes normal; Absent motor sensory deficit Psychiatric Psychiatric exam: Present normal affect and normal mood Skin Skin exam: Present warm, dry, intact and normal color Course Quality Measures none Orders Category Date Time Status US OB <= 14 weeks fetus Stat Exams 02/08/25 21:34 Completed ABO/RH Type Stat Lab 02/08/25 21:38 Completed Beta HCG,Quantitative Stat Lab 02/08/25 21:38 Completed CBC Stat Lab 02/08/25 21:38 Completed CMP [Comprehensive Metabolic Panel] Stat Lab 02/08/25 21:38 Completed Urinalysis Stat Lab 02/08/25 21:34 Completed Vital Signs Vital signs: Vital Signs Temperature 98.7 F 02/08/25 21:28 Pulse Rate 81 02/08/25 21:28 Respiratory Rate 18 02/08/25 21:28 Blood Pressure 123/78 02/08/25 21:28 Pulse Oximetry (%) 98 02/08/25 21:28 Oxygen Delivery Method Room Air 02/08/25 21:28 Oxygen saturation is 98% in room air Vaginal Bleeding MDM Narrative MDM Narrative: This is a case of 34-year-old female with no medical history came in in the emergency room due to vaginal bleeding today with mild pelvic cramping patient is 6 weeks 5 para 4 LMP is unknown still need to see a OB waiting for the referral persistence of the symptoms thus patient decided to sought consult here in the emergency room physical examination patient is awake alert oriented not in distress nontoxic looking well-hydrated well-nourished abdominal exam is benign nonsurgical no guarding no rebound no rigidity gravid uterus no tenderness the rest of the physical examination and neurological exam is normal and unremarkable blood test showed no leukocytosis no anemia kidney and liver function is normal no electrolyte imbalance patient beta-hCG [id number] patient is O+ urinalysis is normal no urinary tract infection pelvic ultrasound showed 6 weeks intrauterine with a heart rate of 133 at this point patient will be discharged home with stable condition he will follow-up PCP to be referred to OB leadership program associate for reevaluation and checkup she was advised to return in the emergency room if not seen OB in 2 days for repeat pelvic ultrasound and beta-hCG for any recurrence persistent worsening symptoms return immediately in the emergency room or call 911 she will continue to take multivitamins and hydration pelvic rest is advised Patient was discharged with comfortable condition walking with stable gait. Patient verbalized no further complains explained diagnosis and answered patient question. Patient is comfortable with the proposed management plan including the need to follow up with his/her primary care physician and any specialist if applicable Discussed patient for any urgent condition or worsening sx, He/She needed to go to emergency room immediately or call 911. Patient acknowledge the responsibility to follow up as instructed and to monitor her/his symptoms. For any persistence of the symptoms for more than 3-5 days return precaution advised. Discussed the result of the test and was given printed discharge instruction Patient data External records reviewed:: [facility] previous records Clinical information provided by:: patient Social determinants that could affect healthcare access:: none Patient has the following chronic illnesses:: None How is presenting disease/condition affected by chronic disease/condition?: no chronic disease Evaluation data The following diagnostics were reviewed and interpreted by me:: lab results and radiology exam(s) Lab and/or radiology exams considered but not ordered:: Reviewed Interpretation Summary: Reviewed Medications / Prescriptions Medications or Prescriptions considered but not ordered:: Given Medication administrations:: Given Consultations Consultation(s) initiated? (list below): No Diagnosis Vaginal Bleeding Differential Diagnosis: missed , threatened , dysfunctional uterine bleeding, incomplete , ectopic without intrauterine and vaginal bleeding Most likely diagnosis given after review of the tests above:: Threatened in early Admission Indicated Admission indicated?: not indicated Explain why admission is indicated or not indicated:: Not indicated Admission Request Was there a request for admission?: No Admission Attestation Admission request attestation: Not indicated Disposition Plan Disposition Plan: Discharge Discharge Attestation Discharge Attestation: The patient and all family members were given an opportunity to ask questions and understood the discharge instructions. Discharge instructions specifically effects, indications for sooner follow up or return to the emergency department, and the expected course of current diagnosis. Patient condition: Stable Discharge Plan Plan Patient Disposition: HOME (Self Care) Patient condition on transfer: Stable Prescriptions/Referrals Prescriptions/Med Rec: No Action ibuprofen 600 mg tablet 600 mg PO Q8H PRN (Reason: pain) Qty: 30 0RF ibuprofen 800 mg tablet 800 mg PO Q6H PRN (Reason: pain) Qty: 20 0RF acetaminophen-codeine 300-30 mg tablet 2 tab PO Q8H MDD 6 PRN (Reason: pain) Qty: 20 0RF cefdinir 300 mg capsule 300 mg PO BID Qty: 14 0RF Referrals: Oralia Dean NP [Primary Care Provider] - In 1 week Problem List Clinical Impression: , threatened, early Patient/Caregiver Discharge Instructions Education Materials: Understanding Miscarriage ..., ED Possible Miscarriage ... Additional Instructions: Follow-up with your primary care physician in 2 days for reevaluation and to be referred to OB leadership program associate for further evaluation and treatment of threatened in early and checkup recurrence persistent worsening symptoms or any emergent concern return immediately in the emergency room or call 911 it is very important to see an OB leadership program associate in 2 days for reevaluation and checkup if not return here in the emergency room for reevaluation and to have repeat pelvic ultrasound and beta-hCG pelvic rest is advised no sex until cleared by primary care physician continue multivitamins keep hydrated Print Language: S[place]ome[place] Stand Alone Forms: Megha Award Info., Patient Portal Info Letter PA/PROMOTION OFFICER Supervising Physician PA/PROMOTION OFFICER Supervising Physician: Dr. Diaz
== END 2025-02-08 23:35 | disposition home or self-care (01) ==
PROVIDERS: Nurse Practitioner Family; Emergency Provider Emergency Medicine; PCP Nurse Practitioner Family
DX: O20.0 Threatened abortion (principal); Z3A.01 Less than 8 weeks gestation of pregnancy
CPT/HCPCS: 36415; 76801; 80053; 81001; 84702; 85025; 86900; 86901; 99283

== ENCOUNTER 2025-02-13 00:13 | Emergency (ER) | payer MEDICAID, SELFPAY ==
[2025-02-13 00:13] VITALS: BMI 30.7
--- NOTE | 2025-02-13 00:28 | XR_ITS ---
Examination: Complete OB ultrasound, less than 14 weeks, transabdominal Date and time of exam: February 13, 2025, 0127 hrs. Indications: Pelvic and back pain with vaginal bleeding and pelvic contractions beginning 2 days ago. Technique: Obstetrical ultrasound images less than 14 weeks performed via transabdominal imaging Findings: A normal shaped single intrauterine gestation is present in the uterus. CRL 1.13 cm corresponds to 7 weeks 2 days gestational age. Cardiac motion 157 BPM. Adjacent subchorionic hemorrhage 20 x 13 mm. Ultrasonographic survey of visible structures unremarkable. Amniotic fluid volume appears appropriate for this estimated gestational age. Ovaries obscured by bowel gas. Impression: Viable intrauterine gestation 7 weeks 2 days, recommend short-term follow-up pelvic sonography given the subchorionic hemorrhage..
--- NOTE | 2025-02-13 00:41 | EDNOTE_ITS ---
ED OB Contraction Preg RMI/HPI General Chief complaint: OB/Uterine Contractions Stated complaint: 7WKS PREG / VAG BLEEDING/ ABD PAIN Time Seen by Provider: 02/13/25 00:32 Arrival date/time: 02/13/25 00:13 RME / HPI RME / HPI Narrative: See MDM for Dr. Fierro's HPI documentation. Related Data Previous Rx's ?Medication ?Instructions ?Recorded ibuprofen 600 mg tablet 600 mg PO Q8H PRN pain #30 t abs 06/30/21 ibuprofen 800 mg tablet 800 mg PO Q6H PRN pain #20 t abs 09/15/24 acetaminophen 300 mg-codeine 30 mg 2 tab PO Q8H PRN pa in #20 tabs 09/19/24 tablet cefdinir 300 mg capsule 300 mg PO BID #14 caps 09/19 nitrofurantoin 100 mg PO BID #14 caps 02/13 monohydrate/macrocrystals 100 mg capsule (Macrobid) ondansetron 4 mg disintegrating 4 mg PO TID PRN nausea and 02/13/25 tablet vomiting 30 days #10 tabs oxycodone-acetaminophen 5 mg-325 2 tab PO Q8H PRN pain #12 tabs 02/13/25 mg tablet (Percocet) Allergies Allergy/AdvReac Type Severity Reaction Status Date / Time shrimp Allergy Severe Anaphylaxis Verified 02/08/25 20:34 Review of Systems Review of Systems Systems Reviewed: All systems reviewed, normal except as documented Past Medical History Past Medical History NEUROLOGIC: Negative Neurological Disorders or Seizures CARDIAC: Negative Cardiac Disorders or Congestive Heart Failure RESPIRATORY: Positive Asthma; Negative Chronic Obstructive Pulmonary Disease (COPD) GASTROINTESTINAL: Negative Gastrointestinal Disorders or Hepatitis GENITOURINARY: Negative Genitourinary Disorders or Renal Disease REPRODUCTIVE: Negative Pelvic Inflammatory Disease MUSCULOSKELETAL: Negative Musculoskeletal Disorders ENDOCRINE: Positive Endocrine Disorders; Negative Diabetes Mellitus Type 1 HEMATOLOGIC: Negative Blood Disorders OTHER HISTORY: Positive Hospitalization (Previous ); Negative Autoimmune Disease, Down Syndrome, Developmental Delay, Shingles, Falls, Blood Transfusions, Blood Transfusion Reaction, Anesthesia Reactions, Organ Transplant, Chemotherapy, Radiation Therapy, Hyperbaric Therapy, MRSA, VRSA, Vancomycin-Resistant Enterococci, Human Immunodeficiency Virus (HIV), Chicken Pox, Measles, Mumps, Rubella (Stateless Measles), Pertussis, Clostridium Difficile or Cancer Family History FAMILY HISTORY: Negative Family Neurologic Problems, Family Psychiatric Problems, Family Respiratory Disorders, Family Cardiac Disorders, Family Gastrointestinal Problems, Family Cancer, Family Surgery or Family Anesthesia Reaction Surgical History SURGICAL: Negative Cardiac Surgery, Endocrine Surgery, Ear Surgery, Eye Surgery, Nose Surgery, Oral Surgery, Abdominal Surgery, Nephrectomy, Transurethral Resection, Joint Replacement, Neurologic Surgery, Brain Shunt, Mastectomy, Lumpectomy, Hysterectomy, Tubal Ligation, Section, Vasectomy or Organ Transplant Social History SMOKING STATUS: Never smoker SECOND HAND EXPOSURE: No SUBSTANCE USE: does not use ED Exam Narrative Physical exam: See [facility] for Dr. Fierro's physical exam documentation. Course Quality Measures none Orders Category Date Time Status US OB <= 14 weeks fetus Stat Exams 02/13/25 00:28 Completed BMP [Basic Metabolic Panel] Stat Lab 02/13/25 00:36 Completed Beta HCG,Quantitative Stat Lab 02/13/25 00:36 Completed CBC Stat Lab 02/13/25 00:36 Completed Magnesium Stat Lab 02/13/25 00:36 Completed UA, C/S IF [Urinalysis, C/S if Indicated] Stat Lab 02/13/25 00:42 Completed Urine Culture Stat Lab 02/13/25 00:42 Completed Nitrofurantoin Macro [Macrobid] Med 02/13/25 01:54 Discontinued 100 mg PO X1 ONE Ondansetron Odt [Zofran Odt] Med 02/13/25 01:09 Discontinued 4 mg PO X1 ONE oxyCODONE/APAP 5/325 [Percocet 5/325] Med 02/13/25 01:09 Discontinued 2 tab PO X1 ONE Vital Signs Vital signs: Vital Signs Temperature 98.0 F 02/13/25 01:13 Pulse Rate 79 02/13/25 01:13 Respiratory Rate 18 02/13/25 01:13 Blood Pressure 126/83 02/13/25 01:13 Pulse Oximetry (%) 99 02/13/25 01:13 Oxygen Delivery Method Room Air 02/13/25 01:13 OB/Uterine Contractions [facility] Narrative [facility] Narrative:: This section includes all my notes and documentations, including HPI, PE, and ED course. Ben Fierro MD HPI: 34yo female who is ~7 weeks gestation here with cramping and vaginal bleeding for the last few hours. No nausea or vomiting. No other complaints reported. ROS: All negative except as documented in HPI. Physical Exam: General: Alert and oriented. No acute distress when remaining still. Eyes: Conjunctivae and lids clear. ENT: No nasal congestion. Neck: Supple. Heart: RRR. Lungs: No respiratory distress. Good air movement. No rhonchi, wheezing, rales. Abdomen: Soft and nontender. Normal bowel sounds. No distension. No rebound or guarding. Back: No CVA tenderness. Skin: Warm and dry. Neuro: Alert and oriented X 3. I reviewed all diagnostic test results. My review of the ultrasound report is 7 2/7 week IUP. Blood tests are unremarkable. Beta HCG 95171. UA remarkable for positive leukocyte esterase, 6 WBCs, 2+ bacteria. At this point, diagnoses include: Threatened miscarriage UTI (urinary tract infection) Treatment here included: Macrobid Crow Khan Recommended expectant management. Based on my best medical judgment, made decision no further evaluation or treatment indicated at this time. Patient understands and agrees to the discharge instructions customized and printed, see below. Discharge Instructions from Dr. Fierro printed for you: 1. After evaluation, your baby is alive with good heart activity. 2. Based on ultrasound today, gestational age is about 7 weeks. 3. Only time will tell what will happen. If your symptoms, including bleeding, worsen, you can have a miscarriage. If your symptoms stop, you can have successful . 4. If you do have a miscarriage, we won't be able to save your baby. Under 20-24 weeks, we can't save the baby. 5. No sexual activity until cleared by a doctor taking care of you. 6. Take Macrobid for urinary tract infection. For good hydration, increase oral fluid and maintain clear urine. If dark or yellow, increase oral fluid. Zofran for nausea/vomiting. 7. Percocet for severe pain. 8. See a private doctor on 02/17/2025 for recheck and further care. Ask to review all test results and official radiology reports, to make sure you receive all necessary follow-ups and monitoring. 9. Seek immediate medical care with intolerable pain, extremely heavy vaginal bleeding (soaking more than 3 pads per hour), or with any concerns. Ben Fierro MD Patient data External records reviewed:: [facility] previous records (Per chart review, patient was seen here on 02/08/25 for threatened .) Clinical information provided by:: patient Social determinants that could affect healthcare access:: none Patient has the following chronic illnesses:: none How is presenting disease/condition affected by chronic disease/condition?: no chronic disease Evaluation data The following diagnostics were reviewed and interpreted by me:: lab results and radiology exam(s) Lab and/or radiology exams considered but not ordered:: none Interpretation Summary: I reviewed all diagnostic test results. My review of the ultrasound report is 7 2/7 week IUP. Blood tests are unremarkable. Beta HCG 82222. UA remarkable for positive leukocyte esterase, 6 WBCs, 2+ bacteria. Medications / Prescriptions Medications or Prescriptions considered but not ordered:: none Medication administrations:: Medication Administration History Discontinued Medications Nitrofurantoin Macrocrystals (Nitrofurantoin Macro 100 Mg Capsule) 100 mg PO X1 ONE Stop: 02/13/25 01:55 Last Admin: 02/13/25 02:09 Dose: Not Given Documented By: CELINA Non-Admin Reason: Other, see note Ondansetron HCl (Ondansetron Odt 4 Mg Tabrap) 4 mg PO X1 ONE; Protocol Stop: 02/13/25 01:10 Last Admin: 02/13/25 01:19 Dose: 4 mg Documented By: CELINA Oxycodone/Acetaminophen (Oxycodone/Apap 5/325 Tablet) 2 tab PO X1 ONE Stop: 02/13/25 01:10 Last Admin: 02/13/25 01:19 Dose: 2 tab Documented By: Crow Torres Zofran Consultations Consultation(s) initiated? (list below): No Diagnosis OB Contractions Differential Diagnosis: other (threatened , ectopic , vaginal bleeding in early ) Most likely diagnosis given after review of the tests above:: Threatened miscarriage, UTI (urinary tract infection) Admission Indicated Admission indicated?: not indicated Explain why admission is indicated or not indicated:: With no condition needing emergent intervention, there was no indication for admission. Admission Request Was there a request for admission?: No Disposition Plan Disposition Plan: Discharge Discharge Attestation Discharge Attestation: The patient and all family members were given an opportunity to ask questions and understood the discharge instructions. Discharge instructions specifically effects, indications for sooner follow up or return to the emergency department, and the expected course of current diagnosis. Patient condition: Stable Discharge Plan Plan Patient Disposition: HOME (Self Care) Prescriptions/Referrals Prescriptions/Med Rec: New oxycodone-acetaminophen [Percocet] 5-325 mg tablet 2 tab PO Q8H MDD 6 PRN (Reason: pain) Qty: 12 0RF ondansetron 4 mg tablet,disintegrating 4 mg PO TID PRN (Reason: nausea and vomiting) 30 Days Qty: 10 0RF nitrofurantoin monohyd/m-cryst [Macrobid] 100 mg capsule 100 mg PO BID Qty: 14 0RF Rx Instructions: must administer with a meal/food No Action ibuprofen 600 mg tablet 600 mg PO Q8H PRN (Reason: pain) Qty: 30 0RF ibuprofen 800 mg tablet 800 mg PO Q6H PRN (Reason: pain) Qty: 20 0RF acetaminophen-codeine 300-30 mg tablet 2 tab PO Q8H MDD 6 PRN (Reason: pain) Qty: 20 0RF cefdinir 300 mg capsule 300 mg PO BID Qty: 14 0RF Referrals: Temporary Provider,ED [Physician, Emergency Medicine] - In 1 week Problem List Clinical Impression: Threatened miscarriage, UTI (urinary tract infection) Patient/Caregiver Discharge Instructions Discharge Activity: activity as tolerated Education Materials: ED Possible Miscarriage ..., ED CYSTITIS Female Adult Additional Instructions: Discharge Instructions from Dr. Fierro printed for you: 1.? After evaluation, your baby is alive with good heart activity. 2.? Based on ultrasound today, gestational age is about 7 weeks. 3.? Only time will tell what will happen. If your symptoms, including bleeding, worsen, you can have a miscarriage. If your symptoms stop, you can have successful . 4.? If you do have a miscarriage, we won't be able to save your baby. Under 20-24 weeks, we can't save the baby. 5.? No sexual activity until cleared by a doctor taking care of you. 6. Take Macrobid for urinary tract infection. For good hydration, increase oral fluid and maintain clear urine. If dark or ye llow, increase oral fluid. Zofran for nausea/vomiting. 7. Percocet for severe pain. 8.? See a private doctor on 02/17/2025 for recheck and further care. Ask to review all test results and official radiology reports, to make sure you receive all necessary follow-ups and monitoring. 9.? Seek immediate medical care with intolerable pain, extremely heavy vaginal bleeding (soaking more than 3 pads per hour), or with any concerns. Instrucciones de scooter de la Dra. Fierro impresas para usted: 1. Despu?s de la evaluaci?n, gill beb? est? vivo con buena actividad card?asa. 2. Seg?n la ecograf?a actual, la edad gestacional es de aproximadamente 7 semanas. 3. Solo el tiempo dir? qu? suceder?. Si flaco s?ntomas, incluyendo el sangrado, empeoran, podr?a sufrir un aborto espont?canelo. Si flaco s?ntomas desaparecen, puede tener un embarazo exitoso. 4. Si sufre un aborto espont?cnaelo, no podremos salvar a gill beb?. Si tiene menos de 20 a 24 semanas, no podremos salvarlo. 5. No tenga relaciones sexuales hasta que el m?dico que la atienda lo autorice. 6. [place] Macrobid para la infecci?n del tracto urinario. Para fanny buena hidrataci?n, aumente la ingesta de l?quidos por v?a oral y mantenga la orina ally. Si es oscura o amarilla, aumente la ingesta de l?quidos por v?a oral. Zofran para las n?useas y los v?mitos. 7. Percocet para el dolor intenso. 8. Consulte con un m?dico particular el 17/02/2025 para fanny nueva revisi?n y atenci?n adicional. Solicite la revisi?n de todos los resultados de las pruebas y los informes radiol?gicos oficiales para asegurarse de recibir todos los seguimientos y monitoreo necesarios. 9. Busque atenci?n m?dica inmediata si presenta dolor insoportable, sangrado vaginal extremadamente abundante (que empape m?s de 3 toallas sanitarias por hora) o si tiene alguna inquietud. Print Language: Slovak Stand Alone Forms: Megha Award Info., Patient Portal Info Letter
[2025-02-13 00:44] LABS: Basophils # (Auto) 0.0 Thou/mm3 (0.0-0.2); Basophils % (Auto) 0 % (0-2.5); Eosinophils # (Auto) 0.6 Thou/mm3 (0.0-0.5); Eosinophils % (Auto) 6 % (0-10); Hematocrit 37.5 % (36.0-46.0); Hemoglobin 12.7 g/dL (12.0-16.0); Immature Granulocytes Auto 0.04 Thou/mm3 (0.00-0.00); Lymphocytes # (Auto) 2.4 Thou/mm3 (1.0-4.8); Lymphocytes % (Auto) 23 % (10-50); Mean Corpuscular HGB Conc 33.9 g/dl (31.0-37.0); Mean Corpuscular Hemoglobin 28.4 pg (25.0-35.0); Mean Corpuscular Volume 84 fL (80-100); Monocytes # (Auto) 1.1 Thou/mm3 (0.0-0.8); Monocytes % (Auto) 10 % (0-12); Neutrophils # (Auto) 6.3 Thou/mm3 (1.8-7.7); Neutrophils % (Auto) 60 % (37-80); Nucleated Red Blood Cell # 0.00 Thou/mm3 (0.00-0.00); Nucleated Red Blood Cell % 0 /100 WBC (0); Platelet Count 216 Thou/mm3 (140-440); RDW Standard Deviation 38.5 fL (36.4-46.3); Red Blood Count 4.47 Miln/mm3 (4.00-5.20); White Blood Count 10.5 Thou/mm3 (3.6-11.0)
[2025-02-13 00:45] LABS: Collection Type, Urine Clean Catch
[2025-02-13 00:55] LABS: Bacteria,Urine 2+; Bilirubin,Urine Negative (Negative); Blood,Urine 2+ (Negative); Clarity,Urine Clear (Clear/Hazy); Color,Urine Colorless (Lt Yel-Yel); Culture Indicated,Urine Yes; Glucose, Urine Negative (Negative); Ketones,Urine Negative (Negative); Leukocyte Esterase,Urine Positive (Negative); Nitrite,Urine Negative (Negative); PH,Urine 6.5 (5.0-7.0); Protein,Urine Negative (Neg - Trace); RBC,Urine 1 /hpf (0-3); Specific Gravity,Urine 1.011 (1.001-1.035); Squamous Epithelial Cell,Urine 6 /hpf (0-5); Urobilinogen,Urine Negative mg/dL (0.0-1.0); WBC,Urine 6 /hpf (0-5)
[2025-02-13 01:13] VITALS: BP 126/83; PULSE 79; RESP 18; TEMP 36.7; O2SAT 99
[2025-02-13 01:17] LABS: Anion Gap 9 (7-16); BUN/Creatinine Ratio 14 Ratio (12-20); Blood Urea Nitrogen 10 mg/dL (9-23); Calcium 10.0 mg/dL (8.3-10.6); Carbon Dioxide 26.5 mMol/L (20.0-31.0); Chloride 103 mMol/L (98-107); Creatinine (Component) 0.7 mg/dL (0.6-1.3); Estimated Creatinine Clearance 124.1 mL/min (>60); Glucose 157 mg/dL (74-106); Magnesium 1.9 mg/dL (1.6-2.6); Osmolality,Calculated 277 (275-295); Potassium 4.3 mMol/L (3.4-5.1); Sodium 138 mMol/L (136-145); eGFR > 60 See Note
[2025-02-13] MEDS: ONDANSETRON ODT 4 MG TABRAP PO (01:19)
[2025-02-13 01:35] LABS: Beta HCG,Quantitative 79997 mIU/mL (<5.0)
--- NOTE | 2025-02-13 02:31 | PRELIM_ITS ---
Obstetric ultrasound February 13, 2025 0127 hours Clinical history: Bleeding (GA 7 1/7 weeks) Technique: Real-time ultrasound was performed using Duplex scanning. Findings: Uterus is 13.2 x 6.8 x 8.1 cm. Single live intrauterine gestation. Ultrasound gestational age is 7 weeks 2 days. heart rate is 157 bpm. The ovaries are not identified due to bowel gas. Probable 6 cm uterine fibroid. A 2.0 x 1.3 x 1.3 cm subchorionic hemorrhage. No free fluid. Impression: Single live intrauterine gestation. Small subchorionic hemorrhage. Recommend followup. Probable uterine fibroid. Report Electronically Signed By: Kahlil Gonzales 02/13/2025 2:31:14 AM [EST]
== END 2025-02-13 02:10 | disposition home or self-care (01) ==
PROVIDERS: Emergency Provider Emergency Medicine; PCP Student in an Organized Health Care Education/Training Program
DX: O20.0 Threatened abortion (principal); O23.41 Unspecified infection of urinary tract in pregnancy, first trimester; Z3A.01 Less than 8 weeks gestation of pregnancy; N39.0 Urinary tract infection, site not specified
CPT/HCPCS: 36415; 76801; 80048; 81001; 83735; 84702; 85025; 87086; 99283; Q0162; A9270

== ENCOUNTER 2025-03-08 16:33 | Emergency (ER) | payer MEDICAID, SELFPAY ==
[2025-03-08 16:36] VITALS: BMI 30.9
[2025-03-08 17:46] VITALS: BP 124/77; PULSE 92; RESP 18; TEMP 36.9; O2SAT 99; BMI 25.7
--- NOTE | 2025-03-08 18:02 | XR_ITS ---
Examination: Complete OB ultrasound, less than 14 weeks, transabdominal Date and time of exam: March 08, 2025 2042 hrs. Indications: Hyperglycemia, pelvic pain today Technique: Obstetrical ultrasound images less than 14 weeks performed via transabdominal imaging Findings: A normal shaped single intrauterine gestation is present in the uterus. CRL 4.3 cm corresponds to 11 weeks 1 day gestational age Cardiac motion 167 BPM Ultrasonographic survey of visible and placental structures unremarkable. Amniotic fluid volume appears appropriate for this estimated gestational age. Right ovary 3.1 cm arterial flow Left ovary 3.8 cm arterial flow Impression: Viable intrauterine gestation 11 weeks 1 day.
--- NOTE | 2025-03-08 18:03 | EDNOTE_ITS ---
ED Headache RME/HPI General Chief Complaint: General Adult/Misc Complain Stated Complaint: HIGH FSBS 222, MOMIN WITH DRY MOUTH;11 WEEKS OB Time Seen by Provider: 03/08/25 17:51 Arrival date/time: 03/08/25 16:33 RME / HPI RME / HPI Narrative: 34-year-old female patient with significant history of gestational diabetes mellitus, not taking any diabetes medication, 2 para 1, about 11 weeks , have not seen any [facility], came in for evaluation regarding headache, dry mouth, pelvic pain, has been ongoing for last few days. Patient has been monitoring her blood sugar, and it was noted to be slightly elevated, latest blood sugar was 222. Patient denies any vaginal bleeding. Denies any other complaints. Related Data Previous Rx's ?Medication ?Instructions ?Recorded ibuprofen 600 mg tablet 600 mg PO Q8H PRN pain #30 t abs 06/30/21 ibuprofen 800 mg tablet 800 mg PO Q6H PRN pain #20 t abs 09/15/24 acetaminophen 300 mg-codeine 30 mg 2 tab PO Q8H PRN pa in #20 tabs 09/19/24 tablet cefdinir 300 mg capsule 300 mg PO BID #14 caps 09/19 nitrofurantoin 100 mg PO BID #14 caps 02/13 monohydrate/macrocrystals 100 mg capsule (Macrobid) ondansetron 4 mg disintegrating 4 mg PO TID PRN nausea and 02/13/25 tablet vomiting 30 days #10 tabs oxycodone-acetaminophen 5 mg-325 2 tab PO Q8H PRN pain #12 tabs 02/13/25 mg tablet (Percocet) Allergies Allergy/AdvReac Type Severity Reaction Status Date / Time shrimp Allergy Severe Anaphylaxis Verified 03/08/25 16:41 Review of Systems Review of Systems Narrative Review of Systems: Review of system reviewed and within normal limits except mentioned in HPI ED Exam Narrative Physical exam: VITAL SIGNS: Reviewed. GENERAL APPEARANCE: Alert and interactive, follows commands, no acute distress, HEAD AND FACE: Non-traumatic. ENT: PERRL, pink conjunctivitis, eyelid no trauma, Mucous membrane moist. NECK: Supple, nontender, no nuchal rigidity. CHEST: No tenderness, no crepitus, no paradoxical movement, no retractions. LUNGS: Clear, well ventilated, symmetric, no rales, no wheezing, no ronchi, no stridor, good breath sounds bilaterally. HEART: Regular rate, regular rhythm, no murmur, no gallops. ABDOMEN: Soft, positive bowel sounds, nondistended, no guarding, nontender, no rebound, no masses, RECTAL: Deferred. GENITAL: Deferred. NEUROLOGICAL: Gross motor function intact sensory function intact, Appropriate for age. MUSCULOSKELETAL: low back nontender, full range of motion. EXTREMITIES: Nontender, full range of motion. SKIN: Color pink, dry, no rash, no lacerations, no abrasions, no contusions. LYMPHATICS: Deferred. Course Quality Measures none Orders Category Date Time Status US OB <= 14 weeks fetus Stat Exams 03/08/25 18:02 Taken Beta HCG,Quantitative Stat Lab 03/08/25 18:22 Completed CBC Stat Lab 03/08/25 18:22 Completed CMP [Comprehensive Metabolic Panel] Stat Lab 03/08/25 18:22 Completed Hemoglobin A1C [Glycohemoglobin w (eAG)] Stat Lab 03/08/25 18:22 Completed Urinalysis Stat Lab 03/08/25 19:11 Completed Sodium Chloride 0.9% 1000 ml [Ns] 1,000 ml Med 03/08/25 18:03 Discontinued IV 999 mls/hr Vital Signs Vital signs: Vital Signs Temperature 98.4 F 03/08/25 17:46 Pulse Rate 92 03/08/25 17:46 Respiratory Rate 18 03/08/25 17:46 Blood Pressure 124/77 03/08/25 17:46 Pulse Oximetry (%) 99 03/08/25 17:46 Oxygen Delivery Method Room Air 03/08/25 17:46 Headache MDM Narrative MDM Narrative:: 34-year-old female patient with significant history of gestational diabetes mellitus, not taking any diabetes medication, 2 para 1, about 11 weeks , have not seen any [facility], came in for evaluation regarding headache, dry mouth, pelvic pain, has been ongoing for last few days. Patient has been monitoring her blood sugar, and it was noted to be slightly elevated, latest blood sugar was 222. Patient denies any vaginal bleeding. Denies any other complaints. Patient's workup today all came back unremarkable except for hemoglobin A1c of 6.9, patient's blood sugar initially was noted to be 144, prior to discharge 118. Patient received IV fluids urinalysis no UTI ultrasound of showed single live intrauterine gestation about 11 weeks gestation. Patient was advised to see PCP and for referral to [facility] for possible insulin treatment for gestational diabetes. Currently patient is showing any diabetic ketoacidosis. Patient data External records reviewed:: None Clinical information provided by:: patient Social determinants that could affect healthcare access:: none Patient has the following chronic illnesses:: History of gestational diabetes mellitus How is presenting disease/condition affected by chronic disease/condition?: exacerbated by Evaluation data The following diagnostics were reviewed and interpreted by me:: lab results and radiology exam(s) Lab and/or radiology exams considered but not ordered:: none Interpretation Summary: See results MDM Medications / Prescriptions Medications or Prescriptions considered but not ordered:: None Medication administrations:: Medication Administration History Discontinued Medications Sodium Chloride (Ns) 1,000 mls @ 999 mls/hr IV .Q1H1M ONE Stop: 03/08/25 19:03 Last Infusion: 03/08/25 19:33 Dose: Infused Documented By: Admin: 03/08/25 18:32 Dose: 999 mls/hr Documented By: PINOR IV fluids Consultations Consultation(s) initiated? (list below): No Diagnosis Differential diagnosis headache: headache and other (Hyperglycemia ) Most likely diagnosis given after review of the tests above:: Hyperglycemia Admission Indicated Admission indicated?: not indicated Admission Request Was there a request for admission?: No Disposition Plan Disposition Plan: Discharge Discharge Attestation Discharge Attestation: The patient and all family members were given an opportunity to ask questions and understood the discharge instructions. Discharge instructions specifically effects, indications for sooner follow up or return to the emergency department, and the expected course of current diagnosis. Patient condition: Stable Discharge Plan Plan Patient Disposition: HOME (Self Care) Discharge Disposition comment: Stable Prescriptions/Referrals Prescriptions/Med Rec: No Action ibuprofen 600 mg tablet 600 mg PO Q8H PRN (Reason: pain) Qty: 30 0RF ibuprofen 800 mg tablet 800 mg PO Q6H PRN (Reason: pain) Qty: 20 0RF acetaminophen-codeine 300-30 mg tablet 2 tab PO Q8H MDD 6 PRN (Reason: pain) Qty: 20 0RF cefdinir 300 mg capsule 300 mg PO BID Qty: 14 0RF oxycodone-acetaminophen [Percocet] 5-325 mg tablet 2 tab PO Q8H MDD 6 PRN (Reason: pain) Qty: 12 0RF ondansetron 4 mg tablet,disintegrating 4 mg PO TID PRN (Reason: nausea and vomiting) 30 Days Qty: 10 0RF nitrofurantoin monohyd/m-cryst [Macrobid] 100 mg capsule 100 mg PO BID Qty: 14 0RF Rx Instructions: must administer with a meal/food Referrals: Millie Garcia FNP [Primary Care Provider] - In 1 week Problem List Clinical Impression: Hyperglycemia, Patient/Caregiver Discharge Instructions Discharge Activity: activity as tolerated Education Materials: High Blood Sugar (Hyperglycemia) Additional Instructions: Thank you for the opportunity for serving you today. You are stable for discharged . You are advised to: Follow-up with your PCP in 1 to 2 days and ask for referral to [facility] Return to ED for worsening of symptoms Increase oral fluids Please stop eating carbohydrates Print Language: Bengali Stand Alone Forms: Megha Award Info., Patient Portal Info Letter TRESSA/ADAM Supervising Physician LORENA Supervising Physician: MD Sri
[2025-03-08 18:32] LABS: Basophils # (Auto) 0.0 Thou/mm3 (0.0-0.2); Basophils % (Auto) 0 % (0-2.5); Eosinophils # (Auto) 0.4 Thou/mm3 (0.0-0.5); Eosinophils % (Auto) 5 % (0-10); Hematocrit 33.5 % (36.0-46.0); Hemoglobin 11.4 g/dL (12.0-16.0); Immature Granulocytes Auto 0.03 Thou/mm3 (0.00-0.00); Lymphocytes # (Auto) 1.5 Thou/mm3 (1.0-4.8); Lymphocytes % (Auto) 19 % (10-50); Mean Corpuscular HGB Conc 34.0 g/dl (31.0-37.0); Mean Corpuscular Hemoglobin 29.0 pg (25.0-35.0); Mean Corpuscular Volume 85 fL (80-100); Monocytes # (Auto) 0.7 Thou/mm3 (0.0-0.8); Monocytes % (Auto) 9 % (0-12); Neutrophils # (Auto) 5.3 Thou/mm3 (1.8-7.7); Neutrophils % (Auto) 67 % (37-80); Nucleated Red Blood Cell # 0.00 Thou/mm3 (0.00-0.00); Nucleated Red Blood Cell % 0 /100 WBC (0); Platelet Count 230 Thou/mm3 (140-440); RDW Standard Deviation 40.5 fL (36.4-46.3); Red Blood Count 3.93 Miln/mm3 (4.00-5.20); White Blood Count 8.0 Thou/mm3 (3.6-11.0)
[2025-03-08] MEDS: SODIUM CHLORIDE 0.9% 1000 ML 1,000 ML 999 ML IV (18:32)
[2025-03-08 19:07] LABS: Alanine Aminotransferase 26 U/L (10-49); Albumin, Serum 4.5 gm/dL (3.5-5.0); Albumin/Globulin Ratio 1.9 (1.2-2.2); Alkaline Phosphatase 49 U/L (46-116); Anion Gap 10 (7-16); Aspartate Amino Transferase 21 U/L (0-34); BUN/Creatinine Ratio 12 Ratio (12-20); Bilirubin,Total 0.4 mg/dL (0.3-1.2); Blood Urea Nitrogen 7 mg/dL (9-23); Calcium 9.7 mg/dL (8.3-10.6); Calcium (Corrected) 9.7 mg/dL (8.5-10.1); Carbon Dioxide 24.5 mMol/L (20.0-31.0); Chloride 103 mMol/L (98-107); Creatinine (Component) 0.6 mg/dL (0.6-1.3); Estimated Creatinine Clearance 136.8 mL/min (>60); Globulin 2.4 gm/dL (2.3-3.5); Glucose 144 mg/dL (74-106); Osmolality,Calculated 274 (275-295); Potassium 3.6 mMol/L (3.4-5.1); Sodium 137 mMol/L (136-145); Total Protein 6.9 gm/dL (5.7-8.2); eGFR > 60 See Note
[2025-03-08 19:26] LABS: Collection Type, Urine Clean Catch; Squamous Epithelial Cell,Urine 0 /hpf (0-5)
[2025-03-08 19:31] LABS: Bilirubin,Urine Negative (Negative); Blood,Urine Negative (Negative); Clarity,Urine Clear (Clear/Hazy); Color,Urine Colorless (Lt Yel-Yel); Glucose, Urine Trace (Negative); Hyaline Casts,Urine < 1 /hpf (0-1); Ketones,Urine Negative (Negative); Leukocyte Esterase,Urine Negative (Negative); Nitrite,Urine Negative (Negative); PH,Urine 6.0 (5.0-7.0); Protein,Urine Negative (Neg - Trace); RBC,Urine < 1 /hpf (0-3); Specific Gravity,Urine 1.006 (1.001-1.035); Urobilinogen,Urine Negative mg/dL (0.0-1.0); WBC,Urine < 1 /hpf (0-5)
[2025-03-08 20:53] LABS: Glucose Estimated Average 151 mg/dL (80-131); Hemoglobin A1C 6.9 % Hgb (4.8-6.0)
[2025-03-08 21:18] VITALS: BP 137/86; PULSE 86; RESP 19; TEMP 36.9; O2SAT 100
[2025-03-08 21:33] VITALS: RESP 16
== END 2025-03-08 21:34 | disposition home or self-care (01) ==
PROVIDERS: Nurse Practitioner Family; Emergency Provider Emergency Medicine; PCP Student in an Organized Health Care Education/Training Program
DX: O24.419 Gestational diabetes mellitus in pregnancy, unspecified control (principal); Z3A.11 11 weeks gestation of pregnancy; Z91.013 Allergy to seafood
CPT/HCPCS: 36415; 76801; 80053; 81001; 83036; 84702; 85025; 96360; 99283; J7030